=== PATIENT | female | born 1955 | race Caucasian/White ===

== ENCOUNTER 2017-03-09 05:57 | Day surgery (SDC) | payer BC ==
[~2017-03-09] VITALS: Ht 167.6 cm; Wt 88.5 kg
--- NOTE | ~2017-03-09 | EGD ---
EGD REPORT [facility] [address] [place] [address] NAME: MALLORY CALDWELL : 55 STATUS : [facility]#: [id number] AGE: 61 ADM/REG DATE : 03/09/17 MR#: [id number] REPORT SERV DATE: 03/09/17 DICTATED BY: AURORA BAGLEY DATE: 03/09/17 REPORT STATUS : Draft [facility]IB[facility] BY: [facility] DATE: 03/09/17 [facility] Center Patient Name: Mallory Caldwell Date of : 1955 Attending MD: AURORA BAGLEY, Procedure Date No Time: 03/09/2017 Procedure: Colonoscopy Indications: High risk colon cancer surveillance: Personal history of colonic polyps Referring MD: Isabella Diaz Medicines: Monitored Anesthesia Care Complications: No immediate complications. Estimated blood loss: None. Procedure: Pre-Anesthesia Assessment: - ASA Grade Assessment: III - A patient with severe systemic disease. After I obtained informed consent, the scope was passed under direct vision. Throughout the procedure, the patient's blood pressure, pulse, and oxygen saturations were monitored continuously. The [id number] was introduced through the anus and advanced to the cecum, identified by appendiceal orifice and ileocecal valve. The colonoscopy was performed without difficulty. The patient tolerated the procedure well. The quality of the bowel preparation was good. Findings: The perianal and digital rectal examinations were normal. A sessile polyp was found in the transverse colon. The polyp was 2 mm in size. The polyp was removed with a cold biopsy forceps. Resection and retrieval were complete. Verification of patient identification for the specimen was done. Estimated blood loss was minimal. A sessile polyp was found in the sigmoid colon. The polyp was 2 mm in size. The polyp was removed with a cold biopsy forceps. Resection and retrieval were complete. Verification of patient identification for the specimen was done. Estimated blood loss was minimal. A sessile polyp was found in the rectum. The polyp was 2 mm in size. The polyp was removed with a cold biopsy forceps. Resection and retrieval were complete. Verification of patient identification for the specimen was done. Estimated blood loss was minimal. The exam was otherwise without abnormality. Impression: - One 2 mm polyp in the transverse colon. Resected and retrieved. - One 2 mm polyp in the sigmoid colon. Resected and retrieved. EGD REPORT [address] [place]. [address] NAME: MALLORY CALDWELL : 55 STATUS : [facility]#: [id number] AGE: 61 ADM/REG DATE : 03/09/17 MR#: [id number] REPORT SERV DATE: 03/09/17 DICTATED BY: AURORA BAGLEY DATE: 03/09/17 REPORT STATUS : Draft TRANSCRIBED BY: [facility] DATE: 03/09/17 - One 2 mm polyp in the rectum. Resected and retrieved. - The examination was otherwise normal. Recommendation: - Patient has a contact number available for emergencies. The signs and symptoms of potential delayed complications were discussed with the patient. Return to normal activities tomorrow. Written discharge instructions were provided to the patient. - Return to previous diet. - Continue present medications. - Await pathology results. Procedure Code(s): --- Professional --- 73215, Colonoscopy, flexible, proximal to splenic flexure; with biopsy, single or multiple Diagnosis Code(s): --- Professional --- K62.1, Rectal polyp D12.5, Benign neoplasm of sigmoid colon D12.3, Benign neoplasm of transverse colon Z86.010, Personal history of colonic polyps CPT copyright 2013 [employer]. All rights reserved. 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 AURORA KEVYN, 03/09/2017 8:23 AM Number of Addenda: 0 Note Initiated On: 03/09/2017 7:41 AM Scope Withdrawal Time 0 hours 12 minutes 36 seconds [address] [id number]
[~2017-03-09 05:57] MED LIST: CLARIT10 PO; FLONASE NAS; GLUCCHONDR PO; LIPITOR20 PO; LIPITOR40 PO; PRIN20 PO; VITAMIN D1000 UNI1 PO
== END 2017-03-09 23:59 | disposition home or self-care (01) ==
LOC: DMU 05:57
PROVIDERS: Internal Medicine Gastroenterology
PROC: 0DBP8ZX Excision of Rectum, Via Natural or Artificial Opening Endoscopic, Diagnostic (ICD-10-PCS; 2017-03-09)
PROC: 0DBN8ZX Excision of Sigmoid Colon, Via Natural or Artificial Opening Endoscopic, Diagnostic (ICD-10-PCS; 2017-03-09)
PROC: 0DBL8ZX Excision of Transverse Colon, Via Natural or Artificial Opening Endoscopic, Diagnostic (ICD-10-PCS; principal; 2017-03-09 08:00)
DX: Z12.11 Encounter for screening for malignant neoplasm of colon (principal); D12.3 Benign neoplasm of transverse colon; K63.5 Polyp of colon; K62.1 Rectal polyp; Z86.010 Personal history of colon polyps; Z90.710 Acquired absence of both cervix and uterus; Z99.89 Dependence on other enabling machines and devices; Z88.5 Allergy status to narcotic agent; Z79.899 Other long term (current) drug therapy; Z98.890 Other specified postprocedural states
CPT/HCPCS: 88305